=== PATIENT | male | born 1980 | race African-American/Black ===

== ENCOUNTER → 2016-10-09 | Outpatient (CLI) | payer OTHER ==
[~2016-10-09] MED LIST: INSU70IN9; INSUPOW
[2016-10-09 16:33] LABS: Basophils # (auto) 0 uL; Basophils % (auto) 0.6 % (0.0-2.0); DEFINITIVE VIEW TRANSMISSION; Eosinophils # (auto) 0.2 uL; Eosinophils % (auto) 2.3 % (0.0-7.0); Hematocrit 38.7 % (41.0-53.0); Lymphocytes # (auto) 2.3 uL; Lymphocytes % (auto) 33.5 % (10.0-50.0); Mean Corpuscular Hemoglobin 25.8 pg (28.0-32.0); Mean Corpuscular Hgb Conc. 31.1 g/dL (32.0-36.0); Mean Corpuscular Volume 83.1 fL (80.0-100.0); Mean Platelet Volume 10.3 fL (7.4-10.4); Monocytes # (auto) 0.3 uL; Monocytes % (auto) 4.4 % (0.0-12.0); Neutrophils % (auto) 59.2 % (37.0-80.0); Platelet Count (auto) 257 10^3/uL (140-450); Red Cell Distribution Width 14.8 % (11.6-16.0); White Blood Cell 6.8 10^3/uL (4.4-10.8)
[2016-10-09 16:53] LABS: BUN/Creatinine Ratio 11.6; Calcium 8.6 mg/dL (8.5-10.1); Potassium 3.8 mmol/L (3.5-5.1)
== END | disposition home or self-care (01) ==
LOC: LAB 16:03
PROVIDERS: ATTEND Family Medicine
DX: Z01.812 Encounter for preprocedural laboratory examination (principal)
CPT/HCPCS: 36415; 80048; 85025; 85730

== ENCOUNTER → 2017-07-09 | Outpatient (CLI) | payer OTHER ==
[2017-07-09 10:02] LABS: Urine RBC None Seen /hpf (0 - 3)
[2017-07-09 10:21] LABS: Urine Bilirubin Negative (Negative); Urine Blood Negative /uL (Negative); Urine Color Yellow (Yellow); Urine Glucose 4+ mg/dL (Normal); Urine Hyaline Cast FEW /lpf (0 - 2); Urine Ketone 1+ (Negative); Urine Nitrite Negative (Negative); Urine Squamous Epithelial Cell FEW /hpf (<5); Urine Urobilinogen Normal (Negative); Urine pH 6.5 (5.0-8.0)
[2017-07-09 10:41] LABS: Basophils # (auto) 0.1 uL; Basophils % (auto) 0.8 % (0.0-2.0); Eosinophils # (auto) 0.5 uL; Hemoglobin 11.4 g/dL (13.5-17.5); Lymphocytes # (auto) 2.2 uL; Mean Platelet Volume 9.6 fL (6.9-10.8); Monocytes # (auto) 0.8 uL; Nucleated Red Blood Cells % 0.1 %
[2017-07-09 10:43] LABS: Eosinophils % (auto) 5.2 % (0.0-7.0); Hematocrit 35.3 % (41.0-53.0); Lymphocytes % (auto) 24.9 % (10.0-50.0); Mean Corpuscular Hemoglobin 26.8 pg (28.0-32.0); Mean Corpuscular Hgb Conc. 32.3 g/dL (32.0-36.0); Mean Corpuscular Volume 83.1 fL (80.0-100.0); Monocytes % (auto) 8.5 % (0.0-12.0); Neutrophils # (auto) 5.4 uL; Neutrophils % (auto) 60.6 % (37.0-80.0); Platelet Count (auto) 307 10^3/uL (140-450); Red Cell Distribution Width 15.2 % (11.8-14.3); White Blood Cell 8.9 10^3/uL (4.4-10.8)
[2017-07-09 11:27] LABS: Albumin 3.2 g/dL (3.4-5.0); BUN/Creatinine Ratio 18.9; Bilirubin, Total 0.2 mg/dL (0.2-1.0); Calcium 9.2 mg/dL (8.5-10.1); Potassium 4.1 mmol/L (3.5-5.1); Total Protein 7.2 g/dL (6.4-8.2)
== END | disposition home or self-care (01) ==
LOC: LAB 09:25
PROVIDERS: ATTEND Family Medicine
DX: E10.8 Type 1 diabetes mellitus with unspecified complications (principal)
CPT/HCPCS: 36415; 80053; 81001; 83036; 85025

== ENCOUNTER → 2017-08-09 | Outpatient (CLI) | payer OTHER ==
[~2017-08-09] MED LIST changes: +HYDR-4683 PO; +INSLANTI SC; -INSU70IN9; +LEV25T PO; +SERT-138 PO; +SIMV10TA84 PO
[2017-08-09 09:07] LABS: Eosinophils # (auto) 0.3 uL; Lymphocytes # (auto) 2.5 uL; Mean Platelet Volume 9.1 fL (6.9-10.8); Monocytes # (auto) 0.6 uL; Monocytes % (auto) 7.9 % (0.0-12.0); Neutrophils # (auto) 3.8 uL; Red Cell Distribution Width 15.7 % (11.8-14.3); White Blood Cell 7.2 10^3/uL (4.4-10.8)
[2017-08-09 09:10] LABS: Basophils # (auto) 0.1 uL; Basophils % (auto) 0.8 % (0.0-2.0); Eosinophils % (auto) 3.7 % (0.0-7.0); Hematocrit 32.9 % (41.0-53.0); Hemoglobin 10.4 g/dL (13.5-17.5); Lymphocytes % (auto) 34.6 % (10.0-50.0); Mean Corpuscular Hemoglobin 26.2 pg (28.0-32.0); Mean Corpuscular Hgb Conc. 31.7 g/dL (32.0-36.0); Mean Corpuscular Volume 82.6 fL (80.0-100.0); Nucleated Red Blood Cells % 0.1 %; Platelet Count (auto) 264 10^3/uL (140-450)
[2017-08-09 10:10] LABS: Albumin 2.8 g/dL (3.4-5.0); BUN/Creatinine Ratio 19.2; Bilirubin, Total 0.3 mg/dL (0.2-1.0); Calcium 8.7 mg/dL (8.5-10.1); Potassium 4.3 mmol/L (3.5-5.1); Total Protein 6.2 g/dL (6.4-8.2)
[2017-08-09 10:38] LABS: Giant Platelets Few; Large Platelets FEW; Platelet Estimate Adequate
== END | disposition home or self-care (01) ==
LOC: LAB 08:33
PROVIDERS: ATTEND Family Medicine
DX: E11.9 Type 2 diabetes mellitus without complications (principal)
CPT/HCPCS: 36415; 80053; 85025

== ENCOUNTER → 2017-10-01 | Outpatient (CLI) | payer OTHER | END | disposition home or self-care (01) | LOC: LAB 08:24 | PROVIDERS: ATTEND Family Medicine | DX: E10.9 Type 1 diabetes mellitus without complications (principal) | CPT/HCPCS: 36415; 83036 ==

== ENCOUNTER → 2018-05-11 | Outpatient (CLI) | payer OTHER ==
[2018-05-11 10:06] LABS: Basophils # (auto) 0.1 uL; Basophils % (auto) 1.1 % (0.0-2.0); Eosinophils # (auto) 0.2 uL; Monocytes # (auto) 0.3 uL; Neutrophils # (auto) 2.9 uL; White Blood Cell 5.6 10^3/uL (4.4-10.8)
[2018-05-11 10:08] LABS: Eosinophils % (auto) 3.5 % (0.0-7.0); Hemoglobin 11.7 g/dL (13.5-17.5); Lymphocytes % (auto) 36.3 % (10.0-50.0); Mean Corpuscular Hemoglobin 25.9 pg (28.0-32.0); Mean Corpuscular Hgb Conc. 32.4 g/dL (32.0-36.0); Mean Corpuscular Volume 79.8 fL (80.0-100.0); Monocytes % (auto) 6.1 % (0.0-12.0); Nucleated Red Blood Cells % 0.2 %; Platelet Count (auto) 190 10^3/uL (140-450)
[2018-05-11 10:52] LABS: Urine Bacteria NONE SEEN /hpf (None Seen); Urine Blood Negative /uL (Negative); Urine Specific Gravity 1.031 (1.001-1.035); Urine WBC 1 /hpf (0 - 3)
[2018-05-11 15:25] LABS: Albumin 3.1 g/dL (3.4-5.0); BUN/Creatinine Ratio 13.1; Bilirubin, Total 0.3 mg/dL (0.2-1.0); Calcium 8.5 mg/dL (8.5-10.1); Total Protein 6.6 g/dL (6.4-8.2)
== END | disposition home or self-care (01) ==
LOC: LAB 09:01
PROVIDERS: ATTEND Nurse Practitioner
DX: I73.9 Peripheral vascular disease, unspecified (principal); E10.49 Type 1 diabetes mellitus with other diabetic neurological complication; E03.9 Hypothyroidism, unspecified
CPT/HCPCS: 36415; 80053; 80061; 81001; 82043; 82306; 83036; 84403; 84443; 85025

== ENCOUNTER → 2018-06-14 | Outpatient (CLI) | payer OTHER ==
[2018-06-14 15:09] LABS: Alcohol, Urine < 3.0 mg/dL (0-5); Amphetamine Screen, Urine NEGATIVE (NEGATIVE); Barbiturate Scree,Urine NEGATIVE (NEGATIVE); Benzodiazephine Screen, Urine NEGATIVE (NEGATIVE); Cannabinoid Screen, Urine NEGATIVE (NEGATIVE); Cocaine Screen, Urine NEGATIVE (NEGATIVE); Opiate Scree,Urine NEGATIVE (NEGATIVE); Phencyclidine Screen, Urine NEGATIVE (NEGATIVE)
== END | disposition home or self-care (01) ==
LOC: LAB 14:08
PROVIDERS: ATTEND Nurse Practitioner
DX: Z02.83 Encounter for blood-alcohol and blood-drug test (principal)
CPT/HCPCS: 80307

== ENCOUNTER → 2018-11-07 | Outpatient (CLI) | payer OTHER, MEDICAID | END | disposition home or self-care (01) | LOC: LAB 15:16 | PROVIDERS: ATTEND Podiatrist | DX: E11.621 Type 2 diabetes mellitus with foot ulcer (principal) | CPT/HCPCS: 87205 ==

== ENCOUNTER → 2018-11-22 | Outpatient (CLI) | payer OTHER, MEDICAID ==
[~2018-11-22] MED LIST changes: +INSU75IN2 SC; +METO-169 PO; +[UNRECOGNIZED DRUG - CODE] IV
== END | disposition home or self-care (01) ==
LOC: LAB 09:15
PROVIDERS: ATTEND Internal Medicine Gastroenterology
DX: L10.9 Pemphigus, unspecified (principal)
CPT/HCPCS: 82784; 83516; 86255

== ENCOUNTER → 2019-01-12 | Outpatient (CLI) | payer OTHER, MEDICAID | END | disposition home or self-care (01) | LOC: XY 09:25 | PROVIDERS: ATTEND Podiatrist | DX: M79.89 Other specified soft tissue disorders (principal); E11.9 Type 2 diabetes mellitus without complications; R20.0 Anesthesia of skin | CPT/HCPCS: 93925 ==

== ENCOUNTER → 2019-01-12 | Outpatient (CLI) | payer OTHER ==
[2019-01-12 09:24] LABS: Eosinophils # (auto) 0.2 uL; Hemoglobin 9.1 g/dL (13.5-17.5); Lymphocytes # (auto) 2.2 uL; Monocytes # (auto) 0.6 uL; White Blood Cell 8.2 10^3/uL (4.4-10.8)
[2019-01-12 09:26] LABS: Basophils # (auto) 0.1 uL; Basophils % (auto) 0.8 % (0.0-2.0); Eosinophils % (auto) 2.6 % (0.0-7.0); Hematocrit 30.2 % (41.0-53.0); Lymphocytes % (auto) 26.8 % (10.0-50.0); Mean Corpuscular Hemoglobin 25.6 pg (28.0-32.0); Mean Corpuscular Hgb Conc. 30.2 g/dL (32.0-36.0); Mean Corpuscular Volume 84.8 fL (80.0-100.0); Monocytes % (auto) 7.7 % (0.0-12.0); Neutrophils # (auto) 5.1 uL; Neutrophils % (auto) 62.1 % (37.0-80.0); Nucleated Red Blood Cells % 0.1 %; Platelet Count (auto) 393 10^3/uL (140-450); Red Blood Cells 3.56 10^6/uL (4.5-5.90); Red Cell Distribution Width 18.4 % (11.8-14.3)
[2019-01-12 09:37] LABS: INR 0.87 (0.9-1.15); Partial Thromboplastin Time 21.5 sec (23.78-33.04); Prothrombin Time 9.4 sec (9.27-12.13)
== END | disposition home or self-care (01) ==
LOC: LAB 09:06
PROVIDERS: ATTEND Internal Medicine Gastroenterology
DX: Z01.812 Encounter for preprocedural laboratory examination (principal); I10 Essential (primary) hypertension; E11.9 Type 2 diabetes mellitus without complications
CPT/HCPCS: 36415; 85025; 85610; 85730

== ENCOUNTER 2019-01-16 06:47 | Day surgery (SDC) | payer MEDICAID, OTHER ==
[~2019-01-16] VITALS: Ht 188 cm; Wt 72.6 kg
[~2019-01-16 06:47] MED LIST changes: -INSLANTI SC; -INSU75IN2 SC; -LEV25T PO; -METO-169 PO; -[UNRECOGNIZED DRUG - CODE] IV
[2019-01-16] MEDS ORDERED: diphenhdrAMINE HCL 50 MG/1 ML VL ONE (08:13)
[2019-01-16] MEDS ORDERED: SODIUM CHLORIDE LOCK 10 ML ONE (08:13)
[2019-01-16] MEDS ORDERED: FLUMAZENIL 0.1 MG/ML INJ 10ML MDV IV ONE (08:13)
[2019-01-16] MEDS ORDERED: NALOXONE HCL 0.4 MG/ML VIAL ONE (08:13)
[2019-01-16] MEDS: MIDAZOLAM HCL 5 MG/ML-1ML VIAL ONE ×3 (09:10→09:16)
[2019-01-16] MEDS: fentaNYL CITRATE 100 MCG/2 ML VL ONE ×3 (09:10→09:16)
[2019-01-16 09:59] VITALS: BP 120/80
[2019-01-16] MEDS ORDERED: DEXTROSE (50%) 50ML SYRG IV PRN ×2 (10:00)
[2019-01-16] MEDS ORDERED: InsuLIN REG 1unit/0.01ml Soln (100units/ml) SC ONE (10:00)
[2019-01-16] MEDS ORDERED: InsuLIN REG 1unit/0.01ml Soln (100units/ml) SC SCH (11:30)
[2019-01-16] MEDS ORDERED: ACCU-CHEK COMFORT CURVE STRIP VI SCH (11:30)
== END 2019-01-16 12:17 | disposition home or self-care (01) ==
LOC: SUR 06:47
PROVIDERS: ATTEND Internal Medicine Gastroenterology
DX: K63.89 Other specified diseases of intestine (principal); D12.7 Benign neoplasm of rectosigmoid junction; D64.9 Anemia, unspecified; F32.4 Major depressive disorder, single episode, in partial remission; I73.9 Peripheral vascular disease, unspecified; E11.319 Type 2 diabetes mellitus with unspecified diabetic retinopathy without macular edema; E11.42 Type 2 diabetes mellitus with diabetic polyneuropathy; F32.9 Major depressive disorder, single episode, unspecified; F41.9 Anxiety disorder, unspecified; Z79.82 Long term (current) use of aspirin; Z79.899 Other long term (current) drug therapy; Z79.4 Long term (current) use of insulin; Z98.890 Other specified postprocedural states; Z68.20 Body mass index [BMI] 20.0-20.9, adult
CPT/HCPCS: 45380; 82962; 88305; J1200; J1815; J2250; J3010; J7030; 99152

== ENCOUNTER → 2019-02-14 | Outpatient (CLI) | payer OTHER | END | disposition home or self-care (01) | LOC: LAB 15:11 | PROVIDERS: ATTEND Internal Medicine | DX: E11.621 Type 2 diabetes mellitus with foot ulcer (principal) | CPT/HCPCS: 87205 ==

== ENCOUNTER 2019-03-31 14:30 | Emergency (ER) | payer OTHER ==
[~2019-03-31] VITALS: Ht 188 cm; Wt 71.7 kg
[2019-03-31 14:39] VITALS: BP 112/62
[2019-03-31] MEDS ORDERED: cefTRIAXone SOD 1,000 MG VL IM ONE (16:00)
[2019-03-31] MEDS ORDERED: ACETAMINOPHEN 500 MG TAB PO ONE (16:30)
== END 2019-03-31 16:35 | disposition home or self-care (01) ==
LOC: ER 14:37
DX: L03.317 Cellulitis of buttock (principal); E11.9 Type 2 diabetes mellitus without complications
CPT/HCPCS: 96372; 99283; J0696

== ENCOUNTER → 2019-05-09 | Outpatient (CLI) | payer OTHER ==
[~2019-05-09] VITALS: Ht 188 cm; Wt 61.2 kg
[~2019-05-09] MED LIST changes: +ASPI-404 PO; +CHLO25TA22 PO; -HYDR-4683 PO; +HYDR-4833 PO; +INSDRIP SC; -SERT-138 PO; +SERT25TA84 PO; +SERT50TA PO
[2019-05-09 12:14] LABS: Basophils # (auto) 0.1 uL; Basophils % (auto) 1.2 % (0.0-2.0); Eosinophils # (auto) 0 uL; Eosinophils % (auto) 0.4 % (0.0-7.0); Hematocrit 35.4 % (41.0-53.0); Hemoglobin 10.6 g/dL (13.5-17.5); Lymphocytes % (auto) 24.8 % (10.0-50.0); Mean Corpuscular Hemoglobin 25.6 pg (28.0-32.0); Mean Corpuscular Volume 85.3 fL (80.0-100.0); Monocytes # (auto) 0.4 uL; Monocytes % (auto) 5.1 % (0.0-12.0); Neutrophils # (auto) 5.5 uL; Neutrophils % (auto) 68.5 % (37.0-80.0); Nucleated Red Blood Cells % 0.1 %; Platelet Count (auto) 299 10^3/uL (140-450); Red Blood Cells 4.15 10^6/uL (4.5-5.90); Red Cell Distribution Width 16.4 % (11.8-14.3)
[2019-05-09 12:16] LABS: INR < 0.93 (0.9-1.15); Partial Thromboplastin Time 22.4 sec (23.64-32.05)
== END | disposition home or self-care (01) ==
LOC: SUR 11:50 → EDSTATUS 05-12 09:00
PROVIDERS: ATTEND Internal Medicine Gastroenterology
DX: Z01.812 Encounter for preprocedural laboratory examination (principal); R19.7 Diarrhea, unspecified; I11.0 Hypertensive heart disease with heart failure; I50.9 Heart failure, unspecified; E11.9 Type 2 diabetes mellitus without complications; F32.9 Major depressive disorder, single episode, unspecified; F41.9 Anxiety disorder, unspecified; Z79.4 Long term (current) use of insulin; Z79.899 Other long term (current) drug therapy
CPT/HCPCS: 36415; 85025; 85610; 85730

== ENCOUNTER 2019-05-10 19:22 | Inpatient (IN) | payer OTHER ==
[~2019-05-10] VITALS: Ht 188 cm; Wt 68.5 kg
[~2019-05-10 19:22] MED LIST changes: -INSUPOW
[2019-05-10] MEDS ORDERED: SODIUM CHLORIDE 0.9% 2,000 ML IV ONE (20:00)
[2019-05-10] MEDS ORDERED: InsuLIN REG 1unit/0.01ml Soln (100units/ml) IV ONE ×2 (20:00→20:30)
[2019-05-10 20:13] LABS: Basophils # (auto) 0.1 uL; Eosinophils # (auto) 0 uL; Eosinophils % (auto) 0.1 % (0.0-7.0); Mean Corpuscular Hemoglobin 25.1 pg (28.0-32.0); Monocytes # (auto) 0.4 uL; White Blood Cell 9.7 10^3/uL (4.4-10.8)
[2019-05-10 20:15] LABS: Basophils % (auto) 0.6 % (0.0-2.0); Hematocrit 37.2 % (41.0-53.0); Lymphocytes # (auto) 2.4 uL; Lymphocytes % (auto) 25.1 % (10.0-50.0); Mean Corpuscular Hgb Conc. 29.4 g/dL (32.0-36.0); Mean Corpuscular Volume 85.4 fL (80.0-100.0); Monocytes % (auto) 4.2 % (0.0-12.0); Neutrophils # (auto) 6.8 uL; Platelet Count (auto) 303 10^3/uL (140-450); Red Blood Cells 4.36 10^6/uL (4.5-5.90); Red Cell Distribution Width 17.3 % (11.8-14.3)
[2019-05-10] MEDS ORDERED: POTASSIUM CHL 20MEQ/100ML 100 ML IV ONE (20:30)
[2019-05-10] MEDS ORDERED: SODIUM CHLORIDE 0.9% 1,000 ML IV ONE (20:30)
[2019-05-10 20:31] LABS: Albumin 2.3 g/dL (3.4-5.0); Anion Gap 21 (5-15); Blood Alcohol < 3.0 mg/dL (0-5); Blood Urea Nitrogen 50 mg/dL (7-18); Calcium 9.2 mg/dL (8.5-10.1); Carbon Dioxide 12 mmol/L (21-32); Chloride 98 mmol/L (98-107); Magnesium 2.9 mg/dL (1.6-2.6); Potassium 4.7 mmol/L (3.5-5.1); Sodium 131 mmol/L (136-145)
[2019-05-10 20:32] LABS: Acetaminophen < 2.0 ug/mL (10-30); Salicylate 3.9 mg/dL (2.8-20.0)
[2019-05-10 20:35] LABS: Lactic Acid w/Reflex 3.8 mmol/L (0.4-2.0)
[2019-05-10 20:40] LABS: Alanine Aminotransferase 124 U/L (16-61); Alkaline Phosphatase 126 U/L (45-117); Aspartate Aminotransferase 57 U/L (15-37); BUN/Creatinine Ratio 22.3; Bilirubin, Total 0.4 mg/dL (0.2-1.0); GFR African American 43 mL/min; GFR Non-African American 35 mL/min; Total Protein 6.9 g/dL (6.4-8.2)
[2019-05-10 20:44] LABS: Glucose 862 mg/dL (74-106)
[2019-05-10] MEDS ORDERED: InsuLIN R (HUMAN) 100 UNITS in SODIUM CHL 0.9% 99 ML IV SCH (21:04)
[2019-05-10] MEDS: SODIUM CHLORIDE 0.9% 1,000 ML IV SCH ×2 (21:04→23:04)
[2019-05-10] MEDS ORDERED: DEXTROSE (50%) 50ML SYRG IV PRN (21:15)
[2019-05-10 21:33] LABS: Magnesium 2.7 mg/dL (1.6-2.6); Phosphorus 5.5 mg/dL (2.5-4.90)
[2019-05-10] MEDS ORDERED: ACCU-CHEK COMFORT CURVE STRIP VI SCH (22:30)
[2019-05-10] MEDS: ACCU-CHEK COMFORT CURVE STRIP VI SCH (23:32)
[2019-05-11] MEDS: ACCU-CHEK COMFORT CURVE STRIP VI SCH ×8 (00:12→21:58)
[2019-05-11] MEDS ORDERED: SODIUM CHLORIDE 0.9% 1,000 ML IV SCH ×2 (01:04→03:04)
[2019-05-11] MEDS ORDERED: cefTRIAXone 1GM/50ML D5W 50 ML IV ONE (03:00)
[2019-05-11] MEDS ORDERED: IPRATROPIUM BROM 0.5 MG/2.5ML INH SOL NEB ONE (03:00)
[2019-05-11] MEDS ORDERED: ALBUTEROL SULF 2.5 MG/0.5ML(0.5%) NEB SOLN NEB ONE (03:00)
[2019-05-11 03:27] LABS: BUN/Creatinine Ratio 32.8; Calcium 8.2 mg/dL (8.5-10.1)
[2019-05-11 03:30] LABS: Bilirubin, Total 0.1 mg/dL (0.2-1.0); Total Protein 5.5 g/dL (6.4-8.2)
[2019-05-11] MEDS ORDERED: ONDANSETRON HCL 4 MG/2 ML VIAL IV PRN (03:45)
[2019-05-11] MEDS ORDERED: ACETAMINOPHEN 500 MG TAB PO PRN (03:45)
[2019-05-11] MEDS ORDERED: TEMAZEPAM 15 MG CAP PO PRN (03:45)
[2019-05-11] MEDS ORDERED: DEXTROSE (50%) 50ML SYRG IV PRN (03:45)
[2019-05-11] MEDS: InsuLIN REG 1unit/0.01ml Soln (100units/ml) SC SCH ×3 (07:00→17:17)
[2019-05-11] MEDS: ASPirin-EC 81 mg tab PO SCH (10:56)
[2019-05-11] MEDS: SERTRALINE HCL 50 MG TAB PO SCH (10:57)
[2019-05-11 12:00] VITALS: BP 135/79
[2019-05-11] MEDS: HYDROcodone-ACET 5/325MG TAB PO PRN (12:21)
--- NOTE | 2019-05-11 13:01 | NUR ---
RECEIVED PT FROM ER TODAY APPROX 1130. A/O X 4. VSS. PER REPORT, PT HAS BILATERAL FOOT ULCERS. DRESSINGS TO BILAT. FEET INTACT. PT STATES HE HAS A WOUND NURSE WHO TAKES CARE OF THE DRESSINGS. SPEAR IN PLACE, MEDICATED WITH NORCO X 1 FOR PENILE PAIN. CONTINUING TO MONITOR CLOSELY.
[2019-05-11 17:06] VITALS: BP 116/65
[2019-05-11 21:48] VITALS: BP 129/81
[2019-05-11] MEDS ORDERED: InsuLIN REG 1unit/0.01ml Soln (100units/ml) SC SCH (22:00)
[2019-05-12 04:42] VITALS: BP 100/60
[2019-05-12] MEDS: ACCU-CHEK COMFORT CURVE STRIP VI SCH ×4 (06:36→22:17)
[2019-05-12] MEDS: InsuLIN REG 1unit/0.01ml Soln (100units/ml) SC SCH ×4 (06:37→22:27)
[2019-05-12] MEDS ORDERED: LIDOCAINE VISCOUS 2% 15ML UD ONE (08:37)
[2019-05-12] MEDS ORDERED: MIDAZOLAM HCL 5 MG/ML-1ML VIAL ONE (08:37)
[2019-05-12] MEDS ORDERED: SODIUM CHLORIDE LOCK 0 ML ONE (08:37)
[2019-05-12] MEDS ORDERED: fentaNYL CITRATE 100 MCG/2 ML VL ONE (08:37)
[2019-05-12] MEDS ORDERED: diphenhdrAMINE HCL 50 MG/1 ML VL ONE (08:38)
[2019-05-12 09:23] VITALS: BP 125/72
[2019-05-12 09:23] LABS: Calcium 8.8 mg/dL (8.5-10.1)
[2019-05-12 09:29] LABS: BUN/Creatinine Ratio 19.6
[2019-05-12] MEDS: ASPirin-EC 81 mg tab PO SCH (09:51)
[2019-05-12] MEDS: SERTRALINE HCL 50 MG TAB PO SCH (09:51)
--- NOTE | 2019-05-12 12:01 | NUR ---
PT STATED HE IS DEPRESSED, BUT HE IS NOT SUICIDAL. HE HAS NEVER WANTED TO HARM HIMSELF OR OTHERS. PT ALSO STATED HE DOES NOT WISH TO HAVE THE TELEPSYCH EVALUATION.
[2019-05-12 12:39] VITALS: BP 154/94
--- NOTE | 2019-05-12 13:14 | NUR ---
WOUND CARE NOTE: Wound care in to see patient per wound care request regarding multiple skin integrity issue that are noted present on admission. Patient is 39 y/o male with admitting diagnosis of Altered Mental Status. Patient has history of Depression,DM, High Cholesterol. Patient is resting in bed in Rm. 271B. He's awake, alert and oriented. He's self turn and reposition. His current Claude score is 17. Skin/wound assessment done with the assistance of patient's nurse, ROSALEE Elias. Noted patient's bilateral foot has multi resolving DFU. Patient reported that he's under the care of Dr. Tyson for his Diabetic Foot ulcer. Patient does not want anything on his DFU other than wet to dry dressing with Dakins solution ordered by his membership director. He states that he's last seen Dr. Tyson in his clinic "last Wednesday". Advised bedside nurse to cleansed wound and apply wound dressing when Dakins is available. Patient's sacrum has three small old resolving pressure injuries. Wounds are pink with thin brown eschar, shannon wound is brown hyperpigment, no drainage/odor noted. Photograph of patient's multiple skin issue are taken for reference. fellmongery worker, Trisha at bedside talking to patient. RECOMMENDATION: BID/PRN dressing change to bilateral foot, BID/PRN cleaning and application of Z Guard cream to sacrum per MD order, Dietary consult, redistribute pressure points with pillows, continue monitoring by wound care while patient is hospitalized. Addendum: 05/12/19 at 1812 by Silvia Gore RN Amended: Links added.
[2019-05-12] MEDS: HYDROcodone-ACET 5/325MG TAB PO PRN (15:13)
--- NOTE | 2019-05-12 15:22 | NUR ---
Nutrition Consult/assessment Notes please see attached link for complete assessment Est. Needs IBW (86 kg): 5885-3334 kcal (25-30 kcal/kgBW), 86-111 gms pro (1.0-1.3 gms/kgBW r/t wounds severe hypoalb). Will continue to monitor pertinent labs and reassess nutrient need prn Addendum: 05/12/19 at [address] Amended: Links added.
[2019-05-12] MEDS ORDERED: DEXTROSE (50%) 50ML SYRG IV PRN (16:30)
[2019-05-12 16:46] VITALS: BP 137/103
--- NOTE | 2019-05-12 17:53 | NUR ---
assessment Patient is a 39 year old male who is alert and oriented. Prior to admission patient lived home with his and family and functioned with assistance. Per patient he wants to return home on discharge and his [facility] will transport him home. Patient informed me his PCP is Dr Duarte. Patient informed me he has a fww for home use. One of patients admitting diagnosis was suicidal ideations. Patient informed me he is not suicidal. Patient informed me he made a statement "he doesn't want to live like this being a burden on his family". Patient informed me he has no plans to hurt himself, he is just tired of being a burden. Patient informed me he has never thought about suicide. Patient stated he is just frustrated. Patient accepted resources for local therapist and behavioral health just in case he may need help in the future. Patient will also benefit from diabetic education and home health medication management. Patient verbalized understanding and agreed to discharge plan home. Addendum: 05/12/19 at 1800 by Trisha MEYER Amended: Links added.
--- NOTE | 2019-05-12 19:15 | NUR ---
OPEN SHIFT NOTE PATIENT IS ALERT AND ORIENTED X4 ON ROOM AIR, 20 GAUGE IV IN THE RIGHT AND LEFT FOREARM ARE INTACT AND PATENT, SALINE LOCKED. PATIENT STATES NO PAIN AT THIS TIME. NO BOWEL MOVEMENT TO COLLECT STOOL SAMPLE AT THIS TIME. POC DISCUSSED AND QUESTIONS ANSWERED. BED IS LOCKED IN LOWEST POSITION WITH SIDE RAILS UP X2 FOR SAFETY. CALL LIGHT IS WITHIN REACH AND PATIENT ENCOURAGED TO CALL IF NEEDS ANYTHING. WILL CONTINUE TO ROUND Q1HR AND PRN.
[2019-05-12 21:32] VITALS: BP 165/108
[2019-05-12 23:14] VITALS: BP 113/71
[2019-05-13 05:58] VITALS: BP 134/80
[2019-05-13] MEDS: ACCU-CHEK COMFORT CURVE STRIP VI SCH ×4 (06:43→22:07)
[2019-05-13] MEDS: InsuLIN REG 1unit/0.01ml Soln (100units/ml) SC SCH ×4 (06:49→22:07)
--- NOTE | 2019-05-13 07:30 | NUR ---
Opening Shift Note RECEIVED REPORT FROM NOC RN. Assumed care of patient, awake and alert. No S/S of distress/SOB or pain. BED IN LOWEST, LOCKED POSITION WITH SIDERAILS UP x2. Instructed on POC and to call for assist PRN, will continue to monitor for changes Q1hr and PRN.
[2019-05-13 08:00] VITALS: BP 162/95
[2019-05-13 08:05] VITALS: BP 162/95
[2019-05-13] MEDS: ASPirin-EC 81 mg tab PO SCH (09:53)
[2019-05-13] MEDS: SERTRALINE HCL 50 MG TAB PO SCH (09:53)
[2019-05-13 13:00] VITALS: BP 149/93
[2019-05-13 16:03] VITALS: BP 124/81
--- NOTE | 2019-05-13 20:00 | NUR ---
Opening Shift Note: A&Ox4, resting in bed. Room air, pain level 0/10, and at baseline uses a walker/FWW prn; currently SBA. Bed locked in lowest position, side rails up x2, and call light within reach. IV 20 g's in right and left forearms IID inserted on 05/10/19. [place] inserted on 05/10/19 for retention. Skin: ulcerations on sacral area x3; bilateral feet ulceration JT; *dakins solution unavailable at this time, will call pharmacy at 0630; hx of right great toe amputation. POC discussed and questions answered. Will continue to round prn.
[2019-05-13 22:00] VITALS: BP 151/94
--- NOTE | 2019-05-13 22:23 | NUR ---
Page sent: High Blood Sugar: HS blood sugar was 370. Per aggressive ACHS sliding scale, 10 units of regular insulin is to be given. Patient states "that is not enough insulin to bring my blood sugar down. I take 15 units at every meal and 25 units of regular insulin at night time". Page sent to Dr. Hoffman, current instrumentation designer hospitalist. Per Dr. Hoffman, add one time dose of 15 units of lantus and add 15 units of lantus HS.
--- NOTE | 2019-05-13 22:38 | NUR ---
Page sent: Patient states "lantus and levemir do not work for me and refuse to take it". Page sent to personal support worker hospitalist in regards to patient refusal and other possible options to control blood sugar. Per Stan Limon NP, start moderate scale Q4H to control hyperglycemia.
[2019-05-13] MEDS ORDERED: DEXTROSE (50%) 50ML SYRG IV PRN (23:30)
[2019-05-14] MEDS ORDERED: LORazepam 2MG/ML-1ML VIAL IV ONE (00:15)
[2019-05-14] MEDS: InsuLIN REG 1unit/0.01ml Soln (100units/ml) SC SCH ×6 (00:32→20:06)
[2019-05-14] MEDS: ACCU-CHEK COMFORT CURVE STRIP VI SCH ×6 (00:32→20:07)
[2019-05-14 05:00] VITALS: BP 149/78
[2019-05-14 08:05] VITALS: BP 126/100
[2019-05-14 08:38] VITALS: BP 126/100
--- NOTE | 2019-05-14 10:13 | NUR ---
DR. LAQUITA BENSON.
[2019-05-14] MEDS: ASPirin-EC 81 mg tab PO SCH (10:26)
[2019-05-14] MEDS: SERTRALINE HCL 50 MG TAB PO SCH (10:26)
[2019-05-14 12:32] VITALS: BP 157/111
[2019-05-14] MEDS ORDERED: METOPROLOL TARTRATE 25 MG TAB PO ONE (13:00)
[2019-05-14 16:48] VITALS: BP 93/64
[2019-05-14] MEDS ORDERED: INSULIN NPH Isophane (HUMAN) 1unit/0.01ml Susp(100units/ml) SC SCH (18:00)
--- NOTE | 2019-05-14 19:00 | NUR ---
Opening Shift Note Assumed care of patient, awake and alert. No S/S of distress/SOB or pain. Instructed on POC and to call for assist PRN, will continue to monitor for changes Q1hr and PRN.
[2019-05-14] MEDS: DAKINS QUARTER STR 0.125% (NaHypochlorite) 473 ML TOPICAL SOL TOP SCH (21:36)
[2019-05-14 22:00] VITALS: BP 144/92
--- NOTE | 2019-05-14 23:06 | NUR ---
Care endorsed to
--- NOTE | 2019-05-14 23:07 | NUR ---
Received patient from Husam TURK. Patient is resting in bed. Will continue to monitor the patient's status.
[2019-05-15] MEDS: ACCU-CHEK COMFORT CURVE STRIP VI SCH ×4 (00:12→12:08)
[2019-05-15] MEDS: InsuLIN REG 1unit/0.01ml Soln (100units/ml) SC SCH ×4 (00:12→12:08)
[2019-05-15 05:00] VITALS: BP 142/99
--- NOTE | 2019-05-15 07:20 | NUR ---
CLOSING SHIFT NOTE Care endorsed to Leonard TURK
--- NOTE | 2019-05-15 09:00 | NUR ---
SACRAL WOUNDS SCABS CLEANSED, Z-GUARD APPLIED WITH OPTIFOAM APPLICATION.
[2019-05-15 09:03] VITALS: BP 126/68
[2019-05-15] MEDS ORDERED: INSULIN NPH Isophane (HUMAN) 1unit/0.01ml Susp(100units/ml) SC SCH (10:00)
[2019-05-15] MEDS: ASPirin-EC 81 mg tab PO SCH (10:36)
[2019-05-15] MEDS: SERTRALINE HCL 50 MG TAB PO SCH (10:36)
[2019-05-15] MEDS: DAKINS QUARTER STR 0.125% (NaHypochlorite) 473 ML TOPICAL SOL TOP SCH (10:36)
--- NOTE | 2019-05-15 11:50 | NUR ---
DR. CLAUDIA BENSON FOR CLARIFICATION OF DISCHARGE ORDER.
--- NOTE | 2019-05-15 12:16 | NUR ---
PER MD COELHO OK TO SHERLY SPEAR.
--- NOTE | 2019-05-15 12:25 | NUR ---
SPEAR CATHETER DC'D, PT TOLERATED PROCEDURE WELL. CALL LIGHT WITHIN REACH.
[2019-05-15 12:32] VITALS: BP 136/92
--- NOTE | 2019-05-15 13:15 | NUR ---
PT REQUESTING SERVICES FOR HELP WITH WOUND CARE. PER MD COELHO ORDER FOR H/H FOR WOUND CARE.
[2019-05-15 13:26] VITALS: BP 136/92
--- NOTE | 2019-05-15 16:15 | NUR ---
DISCHARGE INSTRUCTIONS PROVIDED TO PT. PT VERBALIZED UNDERSTANDING FOR CONTINUATION OF HOME MEDICATIONS AND FOLLOW UP APPOINTMENT WITH PRIMARY CARE PROVIDER. CONTACT INFORMATION PROVIDED DUE TO HOLIDAY. TELE BOX REMOVED AND RETURNED TO MONITORING DEPARTMENT. IV CATHETERS DC'D #20 BOTH. PICTURE OF WOUND TAKEN AND DOCUMENTED, WOUND CARE PROVIDED TO LEFT FOOT, INSTRUCTED PT ON PROCEDURE. PT SAFELY TRANSPORTED OUT OF UNIT VIA WHEELCHAIR.
== END 2019-05-15 16:15 | disposition home or self-care (01) | DRG 637 ==
LOC: ER 19:22 → TELE 19:23 → TELE-WESTW 05-11 11:11
PROVIDERS: ADMIT Nurse Practitioner Family; ATTEND Internal Medicine Pulmonary Disease
DX: E10.10 Type 1 diabetes mellitus with ketoacidosis without coma (principal); G93.41 Metabolic encephalopathy; R45.851 Suicidal ideations; E87.1 Hypo-osmolality and hyponatremia; N17.9 Acute kidney failure, unspecified; F32.9 Major depressive disorder, single episode, unspecified; E78.5 Hyperlipidemia, unspecified; E78.00 Pure hypercholesterolemia, unspecified; Z79.4 Long term (current) use of insulin; Z83.3 Family history of diabetes mellitus; Z82.61 Family history of arthritis; Z82.49 Family history of ischemic heart disease and other diseases of the circulatory system; Z89.431 Acquired absence of right foot; Z79.899 Other long term (current) drug therapy
CPT/HCPCS: 36415; 36600; 80048; 80053; 80320; 80329; 82010; 82805; 82962; 83036; 83605; 83735; 83930; 84100; 84484; 85025; 87040; 93005; A4565; G0378; J1815; J2250; J3480

== ENCOUNTER 2019-05-27 21:33 | Inpatient (IN) | payer OTHER ==
[~2019-05-27] VITALS: Ht 188 cm; Wt 89.7 kg
[~2019-05-27 21:33] MED LIST changes: -SERT25TA84 PO
[2019-05-27 23:45] LABS: Alanine Aminotransferase 189 U/L (16-61); Albumin 2.4 g/dL (3.4-5.0); Anion Gap 8 (5-15); Aspartate Aminotransferase 213 U/L (15-37); BUN/Creatinine Ratio 37.2; Basophils # (auto) 0.1 uL; Blood Urea Nitrogen 42 mg/dL (7-18); Calcium 8.3 mg/dL (8.5-10.1); Carbon Dioxide 20 mmol/L (21-32); Chloride 117 mmol/L (98-107); Eosinophils # (auto) 0.1 uL; Eosinophils % (auto) 1.6 % (0.0-7.0); GFR African American 94 mL/min; GFR Non-African American 78 mL/min; Glucose 172 mg/dL (74-106); Lymphocytes # (auto) 1.6 uL; Nucleated Red Blood Cells % 0.2 %; Potassium 4.9 mmol/L (3.5-5.1); Red Cell Distribution Width 18.1 % (11.8-14.3); Sodium 145 mmol/L (136-145)
[2019-05-27 23:47] LABS: Basophils % (auto) 0.8 % (0.0-2.0); Hematocrit 21.8 % (41.0-53.0); Lymphocytes % (auto) 18.4 % (10.0-50.0); Mean Corpuscular Hemoglobin 25.7 pg (28.0-32.0); Mean Corpuscular Hgb Conc. 31.1 g/dL (32.0-36.0); Mean Corpuscular Volume 82.6 fL (80.0-100.0); Monocytes # (auto) 0.9 uL; Monocytes % (auto) 10.4 % (0.0-12.0); Neutrophils # (auto) 6.1 uL; Neutrophils % (auto) 68.8 % (37.0-80.0); Platelet Count (auto) 336 10^3/uL (140-450); Red Blood Cells 2.64 10^6/uL (4.5-5.90); White Blood Cell 8.9 10^3/uL (4.4-10.8)
[2019-05-27 23:58] LABS: Alkaline Phosphatase 130 U/L (45-117); Bilirubin, Total 0.2 mg/dL (0.2-1.0); Hemoglobin 6.8 g/dL (13.5-17.5); Total Protein 6.5 g/dL (6.4-8.2)
[2019-05-28] VITALS (12 sets, daily range): BP systolic 124–169; BP diastolic 70–109
[2019-05-28] MEDS ORDERED: FUROSEMIDE 20 MG/2 ML VIAL IV ONE (01:15)
[2019-05-28] MEDS ORDERED: TEMAZEPAM 15 MG CAP PO PRN (04:00)
[2019-05-28] MEDS ORDERED: DEXTROSE (50%) 50ML SYRG IV PRN (04:00)
[2019-05-28 06:16] LABS: Basophils # (auto) 0.1 uL; Basophils % (auto) 0.7 % (0.0-2.0); Eosinophils # (auto) 0.1 uL; Eosinophils % (auto) 1.5 % (0.0-7.0); Hematocrit 19.8 % (41.0-53.0); Lymphocytes # (auto) 1.5 uL; Lymphocytes % (auto) 18.9 % (10.0-50.0); Mean Corpuscular Hemoglobin 26.5 pg (28.0-32.0); Mean Corpuscular Hgb Conc. 31.6 g/dL (32.0-36.0); Monocytes # (auto) 0.9 uL; Monocytes % (auto) 11.8 % (0.0-12.0); Neutrophils # (auto) 5.3 uL; Neutrophils % (auto) 67.1 % (37.0-80.0); Nucleated Red Blood Cells % 0.1 %; Platelet Count (auto) 302 10^3/uL (140-450); Red Blood Cells 2.36 10^6/uL (4.5-5.90)
[2019-05-28 06:36] LABS: BUN/Creatinine Ratio 40.9; Calcium 8.3 mg/dL (8.5-10.1)
--- NOTE | 2019-05-28 06:45 | NUR ---
Telemetry admit from ER YAABOBY Priest admitted to Telemetry unit after NO SBAR WAS received. Patient oriented to OMAYRA SHARP, RN primary RN, unit, room, bed, and unit policies regarding patient care and visiting hours. Patient now on continuous telemetry monitoring, tele box # 9 and telemetry reading on arrival to unit is SINUS TACHYCARDIA at 100bpm. Patient placed on bedside oxygen 2 L/min via nasal cannula, weighed by bedscale and encouraged to call if they need something. All questions and concerns addressed, patient verbalized understanding. Patient is A/O x4, no complaints of pain/SOB/or distress. Accucheck was 318, 12 units of insulin to be given. Call light is within reach, side rails up x2, bed is in lowest position.
[2019-05-28 06:57] LABS: Hemoglobin 6.3 g/dL (13.5-17.5)
--- NOTE | 2019-05-28 06:58 | NUR ---
RECEIVED CRITICAL HGB OF 6.3 FROM LAB NOTIFIED PRIMARY ROSALEE CUTLER
[2019-05-28] MEDS: PANTOPRAZOLE 40 MG TAB PO SCH (07:12)
[2019-05-28] MEDS: InsuLIN REG 1unit/0.01ml Soln (100units/ml) SC SCH ×4 (07:13→22:05)
[2019-05-28] MEDS: ACCU-CHEK COMFORT CURVE STRIP VI SCH ×4 (07:13→22:05)
--- NOTE | 2019-05-28 07:20 | NUR ---
Opening Shift Note: Assumed care of patient, awake and alert. No S/S of distress/SOB or pain. Bed in lowest locked position, side rails up x 2, call light within reach. Instructed on POC and to call for assist PRN, will continue to monitor for changes Q1hr and PRN.
[2019-05-28] MEDS: HYDROcodone-ACET 5/325MG TAB PO PRN ×2 (08:44→15:37)
--- NOTE | 2019-05-28 08:58 | NUR ---
Blood transfusion started Beginning Vitals: Temp: 97.9 BP: 156/109 HR: 101 RR: 18 O2: 90%
[2019-05-28] MEDS: SERTRALINE HCL 50 MG TAB PO SCH (10:30)
[2019-05-28] MEDS: LOSARTAN POTASSIUM 50 MG TAB PO SCH (10:30)
--- NOTE | 2019-05-28 11:50 | NUR ---
Blood transfusion ended. Ending vitals: temp: 97.9 BP: 162/104 HR: 94 RR: 18 O2: 91% Patient tolerated well.
[2019-05-28] MEDS: FUROSEMIDE 40 MG/4 ML VIAL IV SCH (12:00)
--- NOTE | 2019-05-28 12:40 | NUR ---
DR. Juide sutton. Original order was for 2 units of blood, only one was type and screened. Awaiting call from
--- NOTE | 2019-05-28 12:57 | NUR ---
WOUND PHOTOS TAKEN. PATIENT TOLERATED WELL.
--- NOTE | 2019-05-28 13:58 | NUR ---
Dr. potter paged regarding blood administration. waiting call back.
--- NOTE | 2019-05-28 14:45 | NUR ---
Per Dr. Dimas, if Hbg is less than 7, transfuse 1 unit of PRBC.
[2019-05-28 15:41] LABS: % Iron Saturation 9.4 % (20-55)
[2019-05-28 15:47] LABS: Hemoglobin 7.7 g/dL (13.5-17.5)
[2019-05-28 15:52] LABS: Hematocrit 24.1 % (41.0-53.0)
--- NOTE | 2019-05-28 16:20 | NUR ---
1600- Hgb 7.7.
--- NOTE | 2019-05-28 19:00 | NUR ---
Opening Shift Note Assumed care of patient, awake and alert. No S/S of distress/SOB or pain. Instructed on POC and to call for assist PRN, will continue to monitor for changes Q1hr and PRN.
--- NOTE | 2019-05-28 22:00 | NUR ---
Hospitalist paged: Patient noted to have a blood pressure of 156/93 with a heart rate of 101.
[2019-05-28] MEDS: INSULIN LANTUS (GLARGINE) 1 /0.01ml (100units/ml) SC SCH (22:05)
--- NOTE | 2019-05-28 22:53 | NUR ---
Hospitalist returned page: Hospitalist updated on patient condition and situation. New orders updated.
[2019-05-28] MEDS ORDERED: METOPROLOL TARTRATE 1MG/1ML-5ML VIAL IV ONE (23:00)
[2019-05-29] VITALS (11 sets, daily range): BP systolic 123–167; BP diastolic 74–113
--- NOTE | 2019-05-29 03:58 | NUR ---
Hospitalist paged: Patient informed RN he did not feel well and was feeling a little dizzy. RN assessed patient's blood pressure and noted it to be 163/101 with a HR of 103.
[2019-05-29] MEDS: HYDROcodone-ACET 5/325MG TAB PO PRN (04:01)
--- NOTE | 2019-05-29 04:24 | NUR ---
Hospitalist returned page: Hospitalist updated on patient condition and situation. New orders updated.
[2019-05-29] MEDS ORDERED: LABETALOL HCL 5 MG/ML ML 20ML VIAL IV ONE (04:30)
[2019-05-29] MEDS: PANTOPRAZOLE 40 MG TAB PO SCH (06:00)
[2019-05-29] MEDS: InsuLIN REG 1unit/0.01ml Soln (100units/ml) SC SCH ×4 (06:34→21:40)
[2019-05-29] MEDS: ACCU-CHEK COMFORT CURVE STRIP VI SCH ×4 (06:34→21:40)
[2019-05-29 06:50] LABS: Basophils # (auto) 0.1 uL; Basophils % (auto) 0.6 % (0.0-2.0); Eosinophils # (auto) 0.1 uL; Nucleated Red Blood Cells % 0.1 %
[2019-05-29 06:58] LABS: Eosinophils % (auto) 0.6 % (0.0-7.0); Lymphocytes # (auto) 1.1 uL; Lymphocytes % (auto) 11.9 % (10.0-50.0); Mean Corpuscular Hgb Conc. 31.5 g/dL (32.0-36.0); Mean Corpuscular Volume 82.6 fL (80.0-100.0); Monocytes % (auto) 10.4 % (0.0-12.0); Neutrophils # (auto) 7.1 uL; Neutrophils % (auto) 76.5 % (37.0-80.0); Platelet Count (auto) 273 10^3/uL (140-450); Red Blood Cells 2.55 10^6/uL (4.5-5.90); Red Cell Distribution Width 17.5 % (11.8-14.3); White Blood Cell 9.3 10^3/uL (4.4-10.8)
--- NOTE | 2019-05-29 07:01 | NUR ---
Critical lab value Hgb 6.6. Hospitalist paged.
[2019-05-29 07:02] LABS: Hemoglobin 6.6 g/dL (13.5-17.5)
[2019-05-29 07:27] LABS: BUN/Creatinine Ratio 41.1; Calcium 8.3 mg/dL (8.5-10.1); Potassium 5.1 mmol/L (3.5-5.1)
[2019-05-29 09:09] LABS: Hepatitis B Surface Antibody Negative
[2019-05-29 09:13] LABS: Folate (Folic Acid) 22.08 ng/mL (5.38-24)
--- NOTE | 2019-05-29 09:38 | NUR ---
Dr. Ellington ordered 1 unit PRBC. Awaiting BBK
[2019-05-29 09:43] LABS: Hepatitis A Total Antibody Positive
--- NOTE | 2019-05-29 09:45 | NUR ---
Dr Ellington at bedside. discussed POC with patient. Will plan EGD tomorrow, 05/30/19. Patient to be NPO after midnight.
[2019-05-29] MEDS: FUROSEMIDE 40 MG/4 ML VIAL IV SCH (09:58)
[2019-05-29] MEDS: SERTRALINE HCL 50 MG TAB PO SCH (09:58)
[2019-05-29] MEDS: LOSARTAN POTASSIUM 50 MG TAB PO SCH (09:58)
[2019-05-29] MEDS: INSULIN LANTUS (GLARGINE) 1 /0.01ml (100units/ml) SC SCH ×2 (09:59→21:40)
[2019-05-29] MEDS ORDERED: LISINOPRIL 10 MG TAB PO SCH (10:00)
[2019-05-29 10:14] LABS: INR 0.95 (0.9-1.15)
--- NOTE | 2019-05-29 11:09 | NUR ---
Began blood transfusion. Beginning vitals are as followed. Temp-98.1 B/P- 149/103 HR-98 RR- 18 O2-92 Will continue to assess.
--- NOTE | 2019-05-29 11:14 | NUR ---
Per wound care nurse: Patient had wounds on his buttock during last visit. Patient denied wounds other than on the foot during admission. During report from NOC shift, nurse noted that patient stated that he only had wounds on his feet. Once asked about the wounds on his buttock, patient stated that they are there, and he developed them during the last visit. Will assess and take photos.
--- NOTE | 2019-05-29 11:48 | NUR ---
WOUND CARE NOTE: Wound care in to see patient per wound care request regarding "several wounds on feet" that are noted present on admission.Bedside nurse took photographs of patient's wounds upon admission for reference. Patient is 39 y/o male with admitting diagnosis of Anemia. Patient with history of CHF, Depression,DM, High Lipids. Patient is resting in bed in Rm. 251B. He's awake, alert and oriented. He's self turn and reposition and his Claude score is 18. Skin/wound assessment done with the assistance of patient's nurse, ROSALEE Das. Patient noted with multiple scabbed and open DFU to bilateral lateral and medial foot. Patient's DFU is chronic and he's under the care of Dr. Tyson for his Diabetic Foot ulcer. Patient wish to continue his BID wet to dry dressing with Dakins solution ordered by his director of critical care. He states that he's last seen Dr. Tyson in his clinic "last week". Advised bedside nurse to cleansed wound and apply dry dressing when Dakin's solution is available. Patient's sacrum has three small pink scar tissue history of pressure injuries, area is clean and dry, left open to air. Patient tolerated well, nurse at bedside. RECOMMENDATION: BID/PRN dressing change to bilateral foot, BID/PRN cleaning and application of Z Guard cream to sacrum per MD order, redistribute pressure points with pillows, continue monitoring by wound care while patient is hospitalized. Addendum: 05/29/19 at 1621 by Silvia Gore RN Amended: Links added.
[2019-05-29 13:03] LABS: Hepatitis B Core Total AB Negative; Hepatitis B Surface Antigen Negative (Negative); Hepatitis C Antibody Negative (Negative)
--- NOTE | 2019-05-29 14:00 | NUR ---
Transfusion ended. Patient tolerated well. ending vitals temp-98.1 BP-166/113 HR-96 RR-16 O2- 95%
--- NOTE | 2019-05-29 14:13 | NUR ---
Per patient: "I want to leave." Patient states he wants to leave due to liquid diet and that we are "trying to starve him. No one knows how insulin works and I will starve if I don't eat." Patient educated on risks of leaving at this time. Will continue to educate and assess patient.
[2019-05-29] MEDS ORDERED: LORazepam 2MG/ML-1ML VIAL IV ONE (14:15)
--- NOTE | 2019-05-29 14:15 | NUR ---
Dr. Duarte paged regarding patients blood pressure of 166/113
--- NOTE | 2019-05-29 14:20 | NUR ---
Patient refused Ativan for MRI, Tech notified.
--- NOTE | 2019-05-29 14:22 | NUR ---
Dr. Duarte called back and stated it was not his patient. Stated he was going to call Dr. Mijares
[2019-05-29] MEDS: IRON SUCROSE COMPLEX 200 MG in SODIUM CHL 0.9% 100 ML IV SCH (15:58)
--- NOTE | 2019-05-29 16:50 | NUR ---
Wound care complete. Patient insisted on the foot being wrapped.
[2019-05-29] MEDS ORDERED: LORazepam 2MG/ML-1ML VIAL IV PRN (18:00)
--- NOTE | 2019-05-29 18:01 | NUR ---
Patient stating he is ready to leave AMA. Patient educated on the risk of leaving at this time. Patient states " I'm going to have to think on this."
--- NOTE | 2019-05-29 18:44 | NUR ---
Patient refusing blood draw at this time. Patient educated on the need for the draw at this time. Patient still refusing.
[2019-05-29] MEDS ORDERED: MORPHINE SULFATE 4 MG/ML SYR/VIAL IV ONE (21:00)
--- NOTE | 2019-05-29 21:03 | NUR ---
Hospitalist paged: Patient was complaining of increased pain that was generalized. RN paged hospitalist. Hospitalist returned paged immediately. Hospitalist informed of patients condition and situation. New orders obtained and verified.
[2019-05-29] MEDS: LABETALOL HCL 5 MG/ML ML 20ML VIAL IV PRN (21:18)
--- NOTE | 2019-05-29 23:00 | NUR ---
Patient refused PM lab work.
[2019-05-30 05:00] VITALS: BP 137/75
[2019-05-30] MEDS: PANTOPRAZOLE 40 MG TAB PO SCH (05:42)
[2019-05-30] MEDS: HYDROcodone-ACET 5/325MG TAB PO PRN (05:42)
--- NOTE | 2019-05-30 05:47 | NUR ---
Patient informed RN he does not want to be bothered by lab this morning for blood draws. Patient is refusing morning blood work.
[2019-05-30] MEDS: InsuLIN REG 1unit/0.01ml Soln (100units/ml) SC SCH ×4 (06:31→21:44)
[2019-05-30] MEDS: ACCU-CHEK COMFORT CURVE STRIP VI SCH ×4 (06:31→21:44)
--- NOTE | 2019-05-30 08:00 | NUR ---
Opening Shift Note Assumed care of patient, resting with eyes closed. Wakes easily to sound/touch. No S/S of distress. Says he feels better than yesterday. Instructed on POC and to call for assist PRN, will continue to monitor for changes Q1hr and PRN.
[2019-05-30] MEDS ORDERED: fentaNYL CITRATE 100 MCG/2 ML VL ONE (08:06)
[2019-05-30] MEDS ORDERED: LIDOCAINE VISCOUS 2% 15ML UD ONE (08:06)
[2019-05-30] MEDS ORDERED: FLUMAZENIL 0.1 MG/ML INJ 10ML MDV IV ONE (08:06)
[2019-05-30] MEDS ORDERED: MIDAZOLAM HCL 5 MG/ML-1ML VIAL ONE (08:06)
[2019-05-30] MEDS ORDERED: NALOXONE HCL 0.4 MG/ML VIAL ONE (08:06)
[2019-05-30] MEDS ORDERED: SODIUM CHLORIDE LOCK 10 ML ONE (08:06)
[2019-05-30] MEDS ORDERED: diphenhdrAMINE HCL 50 MG/1 ML VL ONE (08:06)
[2019-05-30 09:00] VITALS: BP 128/73
[2019-05-30] MEDS: INSULIN LANTUS (GLARGINE) 1 /0.01ml (100units/ml) SC SCH ×2 (10:00→21:44)
[2019-05-30] MEDS: SERTRALINE HCL 50 MG TAB PO SCH (10:10)
[2019-05-30] MEDS: FUROSEMIDE 40 MG/4 ML VIAL IV SCH (10:10)
[2019-05-30] MEDS: LOSARTAN POTASSIUM 50 MG TAB PO SCH (10:10)
[2019-05-30 10:13] LABS: Basophils # (auto) 0.1 uL; Basophils % (auto) 0.7 % (0.0-2.0); Eosinophils # (auto) 0.2 uL; Eosinophils % (auto) 1.8 % (0.0-7.0); Hemoglobin 7.9 g/dL (13.5-17.5); Lymphocytes # (auto) 1.4 uL; Lymphocytes % (auto) 14.2 % (10.0-50.0); Mean Corpuscular Hemoglobin 26.3 pg (28.0-32.0); Mean Corpuscular Hgb Conc. 31.5 g/dL (32.0-36.0); Mean Corpuscular Volume 83.3 fL (80.0-100.0); Monocytes # (auto) 1.1 uL; Monocytes % (auto) 11.5 % (0.0-12.0); Neutrophils # (auto) 6.9 uL; Neutrophils % (auto) 71.8 % (37.0-80.0); Nucleated Red Blood Cells % 0.3 %; Platelet Count (auto) 308 10^3/uL (140-450); Red Blood Cells 3.01 10^6/uL (4.5-5.90); Red Cell Distribution Width 17.5 % (11.8-14.3); White Blood Cell 9.7 10^3/uL (4.4-10.8)
[2019-05-30 10:26] LABS: Albumin 1.9 g/dL (3.4-5.0); BUN/Creatinine Ratio 34.3; Calcium 8.7 mg/dL (8.5-10.1); Potassium 5.3 mmol/L (3.5-5.1)
[2019-05-30 10:29] LABS: Bilirubin, Total 0.3 mg/dL (0.2-1.0); Total Protein 6.5 g/dL (6.4-8.2)
--- NOTE | 2019-05-30 12:00 | NUR ---
EGD PATIENT TAKEN DOWN IN BED FOR EGD. ALL PERSONAL BELONGINGS LEFT IN ROOM IN COUNTY ASSESSOR ROOM.
--- NOTE | 2019-05-30 13:06 | NUR ---
Returned Patient returned to floor from EGD. Staff reported that the patient did well the EGD was normal. Patient is still groggy. Lunch was provided, but he is currently too sleepy to eat. Iron was started as ordered. Telemetry was reapplied.
[2019-05-30] MEDS: IRON SUCROSE COMPLEX 200 MG in SODIUM CHL 0.9% 100 ML IV SCH (14:27)
[2019-05-30 17:00] VITALS: BP 156/104
--- NOTE | 2019-05-30 19:10 | NUR ---
OPENING NOTE- NOC SHIFT PATIENT IS RESTING IN BED, NO S/SX OF DISTRESS OR SOB. WILL CONTINUE TO MONITOR Q1H AND PRN.
[2019-05-30 22:00] VITALS: BP 162/91
[2019-05-30] MEDS: LABETALOL HCL 5 MG/ML ML 20ML VIAL IV PRN (22:24)
[2019-05-31] VITALS (7 sets, daily range): BP systolic 129–155; BP diastolic 73–99
[2019-05-31] MEDS: HYDROcodone-ACET 5/325MG TAB PO PRN ×3 (01:24→19:33)
[2019-05-31] MEDS: PANTOPRAZOLE 40 MG TAB PO SCH (06:29)
[2019-05-31] MEDS: InsuLIN REG 1unit/0.01ml Soln (100units/ml) SC SCH ×4 (06:30→21:42)
[2019-05-31] MEDS: ACCU-CHEK COMFORT CURVE STRIP VI SCH ×4 (06:30→22:00)
[2019-05-31 07:25] LABS: Basophils # (auto) 0.1 uL; Basophils % (auto) 0.9 % (0.0-2.0); Eosinophils # (auto) 0.1 uL; Eosinophils % (auto) 1.2 % (0.0-7.0); Hematocrit 25.4 % (41.0-53.0); Hemoglobin 7.7 g/dL (13.5-17.5); Lymphocytes # (auto) 1.2 uL; Lymphocytes % (auto) 12.6 % (10.0-50.0); Mean Corpuscular Hemoglobin 25.6 pg (28.0-32.0); Mean Corpuscular Hgb Conc. 30.5 g/dL (32.0-36.0); Mean Corpuscular Volume 83.9 fL (80.0-100.0); Monocytes # (auto) 1.2 uL; Monocytes % (auto) 12.4 % (0.0-12.0); Neutrophils # (auto) 6.8 uL; Neutrophils % (auto) 72.9 % (37.0-80.0); Nucleated Red Blood Cells % 0.5 %; Platelet Count (auto) 280 10^3/uL (140-450); Red Blood Cells 3.03 10^6/uL (4.5-5.90); Red Cell Distribution Width 17.3 % (11.8-14.3); White Blood Cell 9.3 10^3/uL (4.4-10.8)
[2019-05-31 07:37] LABS: Albumin 1.9 g/dL (3.4-5.0); Calcium 8.5 mg/dL (8.5-10.1); Magnesium 2.4 mg/dL (1.6-2.6)
[2019-05-31 07:41] LABS: BUN/Creatinine Ratio 27.5; Bilirubin, Total 0.3 mg/dL (0.2-1.0); Total Protein 5.9 g/dL (6.4-8.2)
[2019-05-31 07:44] LABS: Potassium 5.6 mmol/L (3.5-5.1)
--- NOTE | 2019-05-31 08:00 | NUR ---
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
[2019-05-31] MEDS: SERTRALINE HCL 50 MG TAB PO SCH (08:59)
[2019-05-31] MEDS: FUROSEMIDE 40 MG/4 ML VIAL IV SCH (08:59)
[2019-05-31] MEDS: INSULIN LANTUS (GLARGINE) 1 /0.01ml (100units/ml) SC SCH ×2 (09:02→21:42)
[2019-05-31] MEDS ORDERED: LACTULOSE 20Gm/30ML SOLN PO ONE (09:45)
[2019-05-31] MEDS: SOD CHL 0.45% 1,000 ML IV SCH ×2 (09:45→17:45)
[2019-05-31] MEDS: LOSARTAN POTASSIUM 50 MG TAB PO SCH ×2 (10:00→17:30)
--- NOTE | 2019-05-31 10:00 | NUR ---
IV insertion IV access obtained, via clean sterile technique by inserting 22 gauge catheter at after attempt(s). IV secured properly. No trauma to site. Patient tolerated procedure well.
--- NOTE | 2019-05-31 11:00 | NUR ---
FAMILY PATIENT'S MOM AND SISTER AT BED SIDE
[2019-05-31] MEDS: IRON SUCROSE COMPLEX 200 MG in SODIUM CHL 0.9% 100 ML IV SCH (11:53)
--- NOTE | 2019-05-31 12:39 | NUR ---
DR PERRY AT BED SIDE WITH PATIENT'S , DR POMPA IS PLANING TO TRANSFER PATIENT INPATIENT IN ORDER PT GET SANFORIZING MACHINE OPERATOR. PATIENT ROOM AIR SATURATION IS BETWEEN 89 TO 90, OXYGEN 2 L NC IS ON AT ALL TIMES, FAMILY AWARE
[2019-05-31] MEDS ORDERED: FUROSEMIDE 40 MG/4 ML VIAL IV ONE (12:45)
[2019-05-31 14:16] LABS: Urine Bacteria NONE SEEN /hpf (None Seen); Urine Blood 1+ /uL (Negative); Urine Specific Gravity 1.015 (1.001-1.035); Urine Sperm PRESENT /hpf (None Seen); Urine WBC 1 /hpf (0 - 3)
[2019-05-31 14:31] LABS: Creatinine, Urine 118 mg/dL (30.0-125.0); Sodium Urine 58 mmol/L (40-220)
--- NOTE | 2019-05-31 14:32 | NUR ---
Nutrition Assessment Notes Please se attached link for complete assessment Est. Needs based on IBW (86 kg): 9749-1987 kcal (25-30 kcal/kgIBW), 68-86 gms pro (0.8-1.0 gms/kgIBW r/t elev RFT severe hypoalb). Will continue to monitor pertinent labs and reassess nutrient need prn Addendum: 05/31/19 at [address] Amended: Links added.
--- NOTE | 2019-05-31 14:40 | NUR ---
TRANSFER: faxed transfer packet to [facility] ph # is [phone] no auth has been given as of yet.
--- NOTE | 2019-05-31 15:56 | NUR ---
Auths: auth for facility is [id number] auth for amr is [id number]. Amr on will call Addendum: 05/31/19 at 1605 by Evonne Wills RN CM disregard above auths I need to await for approval of auths before we can use them
--- NOTE | 2019-05-31 15:58 | NUR ---
papwork faxed to [facility]. Managed Care will have to wait for paperwork to be signed by our Warehouse Logistics Manager before she will approve auths I gave in previous note.
--- NOTE | 2019-05-31 16:06 | NUR ---
Transfer: called [facility] and spoke to Petros at transfer center. He stated they are waiting for their MD to talk with our MD. No accepting MD or RM at this time
--- NOTE | 2019-05-31 16:20 | NUR ---
Discharge planning per consult, patient has orders for 02. Referral faxed to [employer] for DME. Referral faxed for managed care in addition. Received confirmation for both faxes. Addendum: 05/31/19 at 1642 by LEONEL SIMONA SS Amended: Links added. Addendum: 05/31/19 at 1645 by LEONEL SIMONA SS Home supportive resources were provided to Olga to provide to patient/patient's at next encounter. She placed them in the chart. Addendum: 06/01/19 at 1721 by LEONEL JARVIS SS Portable oxygen was delivered to the patient's bedside. Received a call from Carolyn from [employer] advised that they were not able to deliver the 02 concentrator as no one was home at the delivery/contact attempt. Advised I would provide the Crystal with [employer]'s phone number so that she could arrange a time to deliver the concentrator; patient had a post hospital discharge appointment at [facility]. Placed a follow up call, spoke to the Crystal and provided her with [employer]'s phone number to arrange a delivery time. She verbalized understanding.
--- NOTE | 2019-05-31 16:20 | NUR ---
assessment Patient is a 39 year old male who is alert and oriented. Prior to admission patient lived home with his and family and functioned with assistance. Patient informed me his PCP is Dr Duarte. Patient informed me he has a fww and wheelchair for home use. Patient will benefit from diabetic education. Patient has a ss consult for transfer. Patient agrees to transfer. If transfer does not happen today patient has an appointment for software engineering analyst tomorrow. Patient will also need home 02 on discharge. Annabelle ACRRINGTON is working on 02 and Evonne bilingual patient support caseworker is working on transfer. Patient verbalized understanding and agreed to discharge plan of transfer or home. Addendum: 05/31/19 at 1624 by Trisha MEYER Amended: Links added.
--- NOTE | 2019-05-31 16:26 | NUR ---
Transfer, Dr Duarte notified [facility] has no tele beds at this time. Pt does have ophthalmology appt tomorrow
--- NOTE | 2019-05-31 18:30 | NUR ---
PATIENT CONTINUE STABLE, REST MOST OF THE DAY, NO DISTRESS NOTED, CONTINUE MONITORING
[2019-06-01] MEDS: SOD CHL 0.45% 1,000 ML IV SCH ×2 (01:45→09:45)
[2019-06-01 05:45] VITALS: BP 137/79
[2019-06-01] MEDS: PANTOPRAZOLE 40 MG TAB PO SCH (06:47)
[2019-06-01] MEDS: ACCU-CHEK COMFORT CURVE STRIP VI SCH ×2 (06:47→11:44)
[2019-06-01] MEDS: InsuLIN REG 1unit/0.01ml Soln (100units/ml) SC SCH ×2 (06:47→11:30)
[2019-06-01] MEDS: HYDROcodone-ACET 5/325MG TAB PO PRN (06:48)
[2019-06-01 08:00] VITALS: BP_SYST 146; BP_SYST 154; BP_DIAS 79; BP_DIAS 95
--- NOTE | 2019-06-01 08:00 | NUR ---
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
[2019-06-01] MEDS: SERTRALINE HCL 50 MG TAB PO SCH (09:29)
[2019-06-01] MEDS: LOSARTAN POTASSIUM 50 MG TAB PO SCH (09:29)
[2019-06-01 09:50] LABS: Hemoglobin 7.7 g/dL (13.5-17.5); Monocytes # (auto) 1.3 uL
[2019-06-01 09:53] LABS: Basophils # (auto) 0.1 uL; Basophils % (auto) 0.7 % (0.0-2.0); Eosinophils # (auto) 0.2 uL; Eosinophils % (auto) 2.1 % (0.0-7.0); Hematocrit 24.6 % (41.0-53.0); Lymphocytes # (auto) 1.3 uL; Lymphocytes % (auto) 14.1 % (10.0-50.0); Mean Corpuscular Hemoglobin 26.3 pg (28.0-32.0); Mean Corpuscular Hgb Conc. 31.3 g/dL (32.0-36.0); Mean Corpuscular Volume 84.1 fL (80.0-100.0); Monocytes % (auto) 13.6 % (0.0-12.0); Neutrophils # (auto) 6.6 uL; Neutrophils % (auto) 69.5 % (37.0-80.0); Nucleated Red Blood Cells % 0.2 %; Platelet Count (auto) 308 10^3/uL (140-450); Red Blood Cells 2.93 10^6/uL (4.5-5.90); Red Cell Distribution Width 17.2 % (11.8-14.3); White Blood Cell 9.5 10^3/uL (4.4-10.8)
[2019-06-01 09:56] LABS: Albumin 1.9 g/dL (3.4-5.0); Calcium 8.6 mg/dL (8.5-10.1); Potassium 5.4 mmol/L (3.5-5.1)
[2019-06-01 10:00] LABS: Bilirubin, Total 0.2 mg/dL (0.2-1.0); Total Protein 6.1 g/dL (6.4-8.2)
[2019-06-01] MEDS: INSULIN LANTUS (GLARGINE) 1 /0.01ml (100units/ml) SC SCH (10:00)
--- NOTE | 2019-06-01 10:02 | NUR ---
DR POMPA CALLED, INFORM ME THAT PT HAS APPOINTMENT WITH THE ROOFING TECHNICIAN AT 1 PM AND HE WILL BE DISCHARGE TODAY
--- NOTE | 2019-06-01 11:20 | NUR ---
wound discharge photo are taken after wound care is done
[2019-06-01] MEDS: IRON SUCROSE COMPLEX 200 MG in SODIUM CHL 0.9% 100 ML IV SCH (11:45)
[2019-06-01 11:50] VITALS: BP 146/79
--- NOTE | 2019-06-01 11:55 | NUR ---
FAMILY PATIENT'S AT BED SIDE WITH DISCHARGE EHOME INSTRUCTIONS
--- NOTE | 2019-06-01 12:15 | NUR ---
Discharge instructions given as ordered. Encourage to follow up with PMD as instructed. All questions and concerns addressed. Patient verbalized understanding. Medication reconciliation form completed and copy given to patient. Home medications held in Pharmacy returned to patient. IV removed with catheter intact, pressure dressing applied, Telemetry unit returned to ICU. Patient taken to vehicle via wheelchair with all personal belongings, accompanied by staff and family member. No distress noted at time of departure.
== END 2019-06-01 12:15 | disposition home or self-care (01) | DRG 811 ==
LOC: ER 21:33 → TELE 21:34 → TELE-EAST 05-28 06:42
PROVIDERS: ADMIT Nurse Practitioner Family; ATTEND Internal Medicine
PROC: 30233N1 Transfusion of Nonautologous Red Blood Cells into Peripheral Vein, Percutaneous Approach (ICD-10-PCS; 2019-05-28)
PROC: 0DJ08ZZ Inspection of Upper Intestinal Tract, Via Natural or Artificial Opening Endoscopic (ICD-10-PCS; principal; 2019-05-30 12:16)
DX: D50.9 Iron deficiency anemia, unspecified (principal); I50.43 Acute on chronic combined systolic (congestive) and diastolic (congestive) heart failure; J96.00 Acute respiratory failure, unspecified whether with hypoxia or hypercapnia; N17.9 Acute kidney failure, unspecified; E44.0 Moderate protein-calorie malnutrition; H54.62 Unqualified visual loss, left eye, normal vision right eye; I11.0 Hypertensive heart disease with heart failure; E78.5 Hyperlipidemia, unspecified; F32.9 Major depressive disorder, single episode, unspecified; H40.9 Unspecified glaucoma; E10.36 Type 1 diabetes mellitus with diabetic cataract; E10.42 Type 1 diabetes mellitus with diabetic polyneuropathy; E10.65 Type 1 diabetes mellitus with hyperglycemia; M19.90 Unspecified osteoarthritis, unspecified site; Z79.4 Long term (current) use of insulin; Z82.49 Family history of ischemic heart disease and other diseases of the circulatory system; Z83.3 Family history of diabetes mellitus; Z91.19 Patient's noncompliance with other medical treatment and regimen; Z99.81 Dependence on supplemental oxygen; Z79.899 Other long term (current) drug therapy; Z68.25 Body mass index [BMI] 25.0-25.9, adult
CPT/HCPCS: 36415; 36600; 43235; 70540; 70551; 71045; 76705; 80048; 80053; 81001; 82570; 82607; 82746; 82805; 82962; 83010; 83540; 83550; 83615; 83735; 83880; 84300; 84484; 85014; 85018; 85025; 85384; 85610; 86704; 86706; 86708; 86803; 86850; 86880; 86885; 86900; 86901; 86920; 87081; 87340; 93005; 93306; 93886; 93970; 96374; 96375; G0378; J1756; J1815; J2250

== ENCOUNTER → 2019-06-06 | Outpatient (CLI) | payer OTHER ==
[2019-06-06 12:52] LABS: Eosinophils # (auto) 0.2 uL; Lymphocytes # (auto) 1.4 uL; Neutrophils # (auto) 4.5 uL
[2019-06-06 12:55] LABS: Basophils # (auto) 0.1 uL; Basophils % (auto) 0.9 % (0.0-2.0); Eosinophils % (auto) 3.5 % (0.0-7.0); Hematocrit 25.8 % (41.0-53.0); Hemoglobin 8.2 g/dL (13.5-17.5); Lymphocytes % (auto) 19.9 % (10.0-50.0); Mean Corpuscular Hemoglobin 26.1 pg (28.0-32.0); Mean Corpuscular Hgb Conc. 31.6 g/dL (32.0-36.0); Mean Corpuscular Volume 82.5 fL (80.0-100.0); Monocytes # (auto) 0.7 uL; Monocytes % (auto) 10.6 % (0.0-12.0); Neutrophils % (auto) 65.1 % (37.0-80.0); Platelet Count (auto) 330 10^3/uL (140-450); Red Blood Cells 3.13 10^6/uL (4.5-5.90); Red Cell Distribution Width 17.7 % (11.8-14.3); White Blood Cell 6.9 10^3/uL (4.4-10.8)
[2019-06-06 13:31] LABS: Chloride 117 mmol/L (98-107); Potassium 4.6 mmol/L (3.5-5.1); Sodium 144 mmol/L (136-145)
[2019-06-06 13:37] LABS: Alanine Aminotransferase 72 U/L (16-61); Albumin 2.1 g/dL (3.4-5.0); Anion Gap 2 (5-15); BUN/Creatinine Ratio 43.2; Blood Urea Nitrogen 32 mg/dL (7-18); Calcium 8.5 mg/dL (8.5-10.1); Carbon Dioxide 25 mmol/L (21-32); GFR African American 153 mL/min; GFR Non-African American 126 mL/min; Glucose 62 mg/dL (74-106)
[2019-06-06 13:45] LABS: Alkaline Phosphatase 318 U/L (45-117); Aspartate Aminotransferase 32 U/L (15-37); Bilirubin, Total < 0.1 mg/dL (0.2-1.0); Total Protein 6.2 g/dL (6.4-8.2)
== END | disposition home or self-care (01) ==
LOC: LAB 12:13
PROVIDERS: ATTEND Internal Medicine
DX: E11.22 Type 2 diabetes mellitus with diabetic chronic kidney disease (principal); N18.9 Chronic kidney disease, unspecified
CPT/HCPCS: 36415; 80053; 83036; 85025

== ENCOUNTER → 2019-06-19 | Outpatient (CLI) | payer OTHER | END | disposition home or self-care (01) | LOC: LAB 11:54 | PROVIDERS: ATTEND Nurse Practitioner Family | DX: N30.90 Cystitis, unspecified without hematuria (principal) | CPT/HCPCS: 87086 ==